=== PATIENT | female | born 1940 | race Two or more races ===

== ENCOUNTER 2017-03-19 09:01 | Outpatient (CLI) | payer OTHER | END 2017-03-19 09:09 | disposition home or self-care (01) | LOC: SONOGRAMA 09:01 | DX: E04.2 Nontoxic multinodular goiter (principal) ==

== ENCOUNTER 2019-07-17 08:09 | Outpatient (CLI) | payer OTHER | END 2019-07-17 10:00 | disposition home or self-care (01) | LOC: SONOGRAMA 08:09 | PROVIDERS: ATTEND Pathology Anatomic Pathology & Clinical Pathology | DX: E04.2 Nontoxic multinodular goiter (principal) ==

== ENCOUNTER 2020-11-08 07:14 | Outpatient (CLI) | payer OTHER | END 2020-11-08 07:26 | disposition home or self-care (01) | LOC: TOM 07:14 | PROVIDERS: ATTEND Internal Medicine Gastroenterology | DX: Z12.11 Encounter for screening for malignant neoplasm of colon (principal); I70.0 Atherosclerosis of aorta; K56.690 Other partial intestinal obstruction ==